=== PATIENT | male | born 1995 | race African-American/Black ===

== ENCOUNTER 2018-09-14 00:36 | Emergency (ER) | payer MEDICAID ==
[~2018-09-14] VITALS: Ht 198.1 cm; Wt 81.0 kg
[2018-09-14 00:45] VITALS: BP 169/72
== END 2018-09-14 02:20 | disposition left against medical advice (07) ==
LOC: ER 00:36
DX: Z53.21 Procedure and treatment not carried out due to patient leaving prior to being seen by health care provider (principal)